=== PATIENT | female | born 1970 | race Caucasian/White ===

== ENCOUNTER → 2019-07-01 | Outpatient (CLI) | payer MEDICARE, MEDICAID ==
[~2019-07-01] MED LIST: ADV250 IH; ALBU6.7H IH; ATOR10TA84 PO; BENZ2TAB58 PO; DOCU250C16 PO; FAMO20 PO; FLUO-191 PO; HALO5TAB23 PO; SIMVASTATIN; SINGULAIR; TRAMADOL
[2019-07-01 16:10] LABS: BASOPHILS % (AUTO) 0.3 % (0.0-2.0); EOSINOPHILS % (AUTO) 2.3 % (1.0-6.0); HEMATOCRIT 42.3 % (36-46); HEMOGLOBIN 13.3 g/dL (12.0-16.0); LYMPHOCYTES # (AUTO) 1.6 K/uL (1.0-4.8); LYMPHOCYTES % (AUTO) 16.8 % (22.0-44.0); MEAN CORPUSCULAR HEMOGLOBIN 26.8 pg (26.0-34.0); MEAN CORPUSCULAR HGB CONC 31.3 G/dL (31.0-37.0); MEAN CORPUSCULAR VOLUME 86 fL (80-100); MONOCYTES # (AUTO) 0.4 K/uL (0.1-1.0); MONOCYTES % (AUTO) 4.4 % (2.0-9.0); NEUTROPHILS # (AUTO) 7.3 K/uL (1.8-7.7); NEUTROPHILS % (AUTO) 76.2 % (40.0-70.0); PLATELET COUNT (AUTO) 307 K/uL (150-450); RED BLOOD CELL COUNT(AUTO) 4.95 MIL/uL (4.00-5.20); RED CELL DISTRIBUTION WIDTH 15.2 % (11.5-14.5)
== END | disposition home or self-care (01) ==
LOC: LABMN 16:00
DX: F25.0 Schizoaffective disorder, bipolar type (principal)

== ENCOUNTER → 2019-07-30 | Outpatient (CLI) | payer MEDICARE, MEDICAID | END | disposition home or self-care (01) | LOC: LABMN 13:00 | DX: F25.0 Schizoaffective disorder, bipolar type (principal) ==

== ENCOUNTER → 2019-08-26 | Outpatient (CLI) | payer MEDICARE, MEDICAID ==
[2019-08-30 11:07] LABS: HEMATOCRIT 41.2 % (36-46); HEMOGLOBIN 13.2 g/dL (12.0-16.0); MEAN CORPUSCULAR HEMOGLOBIN 27.4 pg (26.0-34.0); MEAN CORPUSCULAR VOLUME 86 fL (80-100); NEUTROPHILS % (AUTO) 58.6 % (40.0-70.0); PLATELET COUNT (AUTO) 338 K/uL (150-450); RED CELL DISTRIBUTION WIDTH 15.7 % (11.5-14.5)
[2019-08-30 11:08] LABS: BASOPHILS % (AUTO) 0.6 % (0.0-2.0); EOSINOPHILS % (AUTO) 4.3 % (1.0-6.0); LYMPHOCYTES # (AUTO) 2.9 K/uL (1.0-4.8); LYMPHOCYTES % (AUTO) 28.3 % (22.0-44.0); MONOCYTES # (AUTO) 0.8 K/uL (0.1-1.0); MONOCYTES % (AUTO) 8.2 % (2.0-9.0); NEUTROPHILS # (AUTO) 5.9 K/uL (1.8-7.7)
== END | disposition home or self-care (01) ==
LOC: LABMN 13:00
DX: F25.0 Schizoaffective disorder, bipolar type (principal)

== ENCOUNTER → 2019-09-29 | Outpatient (CLI) | payer MEDICARE, MEDICAID ==
[2019-10-01 11:16] LABS: HEMATOCRIT 40.8 % (36-46); HEMOGLOBIN 13.2 g/dL (12.0-16.0); MEAN CORPUSCULAR HEMOGLOBIN 27.2 pg (26.0-34.0); MEAN CORPUSCULAR VOLUME 84 fL (80-100); RED BLOOD CELL COUNT(AUTO) 4.84 MIL/uL (4.00-5.20)
[2019-10-01 11:17] LABS: BASOPHILS % (AUTO) 0.9 % (0.0-2.0); EOSINOPHILS % (AUTO) 2.9 % (1.0-6.0); LYMPHOCYTES # (AUTO) 2.5 K/uL (1.0-4.8); LYMPHOCYTES % (AUTO) 29.3 % (22.0-44.0); MEAN CORPUSCULAR HGB CONC 32.3 G/dL (31.0-37.0); MONOCYTES # (AUTO) 0.7 K/uL (0.1-1.0); MONOCYTES % (AUTO) 8.8 % (2.0-9.0); NEUTROPHILS # (AUTO) 4.9 K/uL (1.8-7.7); NEUTROPHILS % (AUTO) 58.1 % (40.0-70.0); PLATELET COUNT (AUTO) 338 K/uL (150-450); RED CELL DISTRIBUTION WIDTH 15.7 % (11.5-14.5)
== END | disposition home or self-care (01) ==
LOC: LABMN 14:00
DX: F25.0 Schizoaffective disorder, bipolar type (principal)

== ENCOUNTER → 2019-11-04 | Outpatient (CLI) | payer MEDICARE, MEDICAID ==
[2019-11-05 12:13] LABS: HEMATOCRIT 39.1 % (36-46); HEMOGLOBIN 12.7 g/dL (12.0-16.0); RED BLOOD CELL COUNT(AUTO) 4.63 MIL/uL (4.00-5.20)
[2019-11-05 12:14] LABS: BASOPHILS % (AUTO) 0.6 % (0.0-2.0); EOSINOPHILS % (AUTO) 3.4 % (1.0-6.0); LYMPHOCYTES # (AUTO) 2.6 K/uL (1.0-4.8); LYMPHOCYTES % (AUTO) 29.7 % (22.0-44.0); MEAN CORPUSCULAR HEMOGLOBIN 27.4 pg (26.0-34.0); MEAN CORPUSCULAR HGB CONC 32.5 G/dL (31.0-37.0); MEAN CORPUSCULAR VOLUME 85 fL (80-100); MONOCYTES # (AUTO) 0.7 K/uL (0.1-1.0); MONOCYTES % (AUTO) 7.5 % (2.0-9.0); NEUTROPHILS # (AUTO) 5.2 K/uL (1.8-7.7); NEUTROPHILS % (AUTO) 58.8 % (40.0-70.0); PLATELET COUNT (AUTO) 309 K/uL (150-450); RED CELL DISTRIBUTION WIDTH 14.9 % (11.5-14.5)
== END | disposition home or self-care (01) ==
LOC: LABPV 09:15
DX: F25.0 Schizoaffective disorder, bipolar type (principal)

== ENCOUNTER → 2019-12-08 | Outpatient (CLI) | payer MEDICARE, MEDICAID ==
[~2019-12-08] MED LIST changes: +CLOZ100 PO; +LEVO75 PO; +PALI234D IM; -SIMVASTATIN; +SIMVASTATIN PO; -SINGULAIR; +SINGULAIR PO; +TRAZ-257 PO
[2019-12-09 11:21] LABS: BASOPHILS % (AUTO) 0.7 % (0.0-2.0); EOSINOPHILS % (AUTO) 2.2 % (1.0-6.0); HEMATOCRIT 43.5 % (36-46); HEMOGLOBIN 14.1 g/dL (12.0-16.0); LYMPHOCYTES # (AUTO) 2.1 K/uL (1.0-4.8); LYMPHOCYTES % (AUTO) 24.8 % (22.0-44.0); MEAN CORPUSCULAR HEMOGLOBIN 26.9 pg (26.0-34.0); MEAN CORPUSCULAR HGB CONC 32.4 G/dL (31.0-37.0); MEAN CORPUSCULAR VOLUME 83 fL (80-100); MONOCYTES # (AUTO) 0.6 K/uL (0.1-1.0); MONOCYTES % (AUTO) 7.5 % (2.0-9.0); NEUTROPHILS # (AUTO) 5.4 K/uL (1.8-7.7); NEUTROPHILS % (AUTO) 64.8 % (40.0-70.0); PLATELET COUNT (AUTO) 386 K/uL (150-450); RED BLOOD CELL COUNT(AUTO) 5.24 MIL/uL (4.00-5.20)
== END | disposition home or self-care (01) ==
LOC: LABMN 13:02
DX: F25.0 Schizoaffective disorder, bipolar type (principal)

== ENCOUNTER 2019-12-15 11:36 | Emergency (ER) | payer MEDICARE, MEDICAID ==
[~2019-12-15] VITALS: Ht 157.5 cm; Wt 113.6 kg
[~2019-12-15 11:36] MED LIST changes: -CLOZ100 PO; -LEVO75 PO; -PALI234D IM; -TRAZ-257 PO
[2019-12-15] MEDS ORDERED: CLOZ100 PO (12:25)
[2019-12-15] MEDS ORDERED: LEVO75 PO (12:25)
[2019-12-15] MEDS ORDERED: PALI234D IM (12:25)
[2019-12-15] MEDS ORDERED: TRAZ-257 PO (12:26)
[2019-12-15] MEDS ORDERED: ALBUTEROL SULFATE HFA 90 MCG/PUFF 8 GM INHALER IH ONE (13:00)
[2019-12-15] MEDS ORDERED: FLUTICASONE PROPIONATE 50 MCG/SPRAY 16 GM NASAL SPRAY NASAL ONE (13:00)
[2019-12-15] MEDS ORDERED: BENZONATATE 100 MG CAPSULE PO ONE (13:00)
[2019-12-15] MEDS ORDERED: MOMETASONE FUROATE 50 MCG/SPRAY 17 GM NASAL SPRAY NASAL ONE (13:15)
[2019-12-15 14:00] VITALS: BP 124/81
== END 2019-12-15 14:00 | disposition home or self-care (01) ==
LOC: EMS 11:38
DX: J45.909 Unspecified asthma, uncomplicated (principal); E78.00 Pure hypercholesterolemia, unspecified; E03.9 Hypothyroidism, unspecified; G47.30 Sleep apnea, unspecified; K21.9 Gastro-esophageal reflux disease without esophagitis; F20.9 Schizophrenia, unspecified; Z79.899 Other long term (current) drug therapy
CPT/HCPCS: 94640; J3535

== ENCOUNTER 2021-03-29 15:32 | Inpatient (IN) | payer MEDICARE, MEDICAID ==
[~2021-03-29] VITALS: Ht 157.5 cm; Wt 106.0 kg
[~2021-03-29 15:32] MED LIST changes: -ADV250 IH; -ATOR10TA84 PO; +CLOZ100T32 PO; -HALO5TAB23 PO; +LEVO75 PO; +PALI234D IM; -TRAMADOL; +TRAZ-257 PO
[2021-03-29] MEDS ORDERED: HALOPERIDOL 5 MG TABLET PO PRN (15:45)
[2021-03-29] MEDS ORDERED: LORazepam 2 MG TABLET PO PRN (15:45)
[2021-03-29] MEDS ORDERED: ZOLPIDEM TARTRATE 10 MG TABLET PO PRN (15:45)
[2021-03-29 17:30] VITALS: BP 135/96
[2021-03-29] MEDS: HALOPERIDOL 10 MG TABLET PO SCH (18:05)
[2021-03-29] MEDS: OLANZapine 10 MG TABLET PO SCH (20:23)
[2021-03-30 00:35] VITALS: BP 122/78
[2021-03-30] MEDS: LEVOTHYROXINE SODIUM 75 MCG TABLET PO SCH (06:51)
[2021-03-30 07:34] LABS: BASOPHILS % (AUTO) 0.3 % (0.0-2.0); EOSINOPHILS % (AUTO) 3.8 % (1.0-6.0); HEMOGLOBIN 13.8 g/dL (12.0-16.0); LYMPHOCYTES # (AUTO) 2.1 K/uL (1.0-4.8); LYMPHOCYTES % (AUTO) 31.9 % (22.0-44.0); MEAN CORPUSCULAR HEMOGLOBIN 25.7 pg (26.0-34.0); MEAN CORPUSCULAR HGB CONC 32.1 G/dL (31.0-37.0); MEAN CORPUSCULAR VOLUME 80 fL (80-100); MONOCYTES # (AUTO) 0.7 K/uL (0.1-1.0); MONOCYTES % (AUTO) 11.3 % (2.0-9.0); NEUTROPHILS # (AUTO) 3.5 K/uL (1.8-7.7); NEUTROPHILS % (AUTO) 52.7 % (40.0-70.0); PLATELET COUNT (AUTO) 284 K/uL (150-450); RED BLOOD CELL COUNT(AUTO) 5.38 MIL/uL (4.00-5.20); RED CELL DISTRIBUTION WIDTH 15.1 % (11.5-14.5)
[2021-03-30 07:40] LABS: HEMOGLOBIN A1C 5.8 % (3.8-5.6)
[2021-03-30] MEDS ORDERED: ACETAMINOPHEN 325 MG TABLET PO PRN (07:45)
[2021-03-30] MEDS ORDERED: GuaiFENesin/D-METHORPHAN [SUGAR-FREE] 200-20MG/10 ML SYRUP UDCUP PO PRN (07:45)
[2021-03-30] MEDS ORDERED: MAG HYDROX/AL HYDROX/SIMETH ES 30 ML SUSPENSION UDCUP PO PRN (07:45)
[2021-03-30] MEDS ORDERED: CloNIDine HCL 0.1 MG TABLET PO PRN (07:45)
[2021-03-30] MEDS ORDERED: ONDANSETRON HCL 4 MG TABLET PO PRN (07:45)
[2021-03-30] MEDS ORDERED: NICOTINE 14 MG/24 HOUR PATCH TD PRN (07:45)
[2021-03-30] MEDS ORDERED: LOPERAMIDE HCL 2 MG CAPSULE PO PRN (07:45)
[2021-03-30] MEDS ORDERED: MAGNESIUM HYDROXIDE SUSPENSION 30 ML UDCUP PO PRN (07:45)
[2021-03-30] MEDS ORDERED: IBUPROFEN 400 MG TABLET PO PRN (07:45)
[2021-03-30] MEDS ORDERED: PETROLATUM,WHITE 28 GM JELLY TP PRN (07:45)
[2021-03-30] MEDS ORDERED: ALBUTEROL SULFATE HFA 90 MCG/PUFF 8 GM INHALER IH PRN (07:45)
[2021-03-30] MEDS ORDERED: DOCUSATE SODIUM 100 MG CAPSULE PO PRN (07:45)
[2021-03-30 07:58] LABS: ALBUMIN 2.9 g/dL (3.4-5.0); BILIRUBIN,TOTAL 0.2 mg/dL (0.1-1.0); CALCIUM, TOTAL 8.9 mg/dL (8.8-10.5); FREE T4 (FREE THYROXINE) 1.21 ng/dL (0.76-1.46); THYROID STIMULATING HORMONE 0.95 uIU/mL (0.36-3.74); TOTAL PROTEIN, SERUM 6.3 g/dL (6.4-8.2)
[2021-03-30] MEDS: OLANZapine 10 MG TABLET PO SCH ×2 (08:51→21:05)
[2021-03-30] MEDS: DOCUSATE SODIUM 100 MG CAPSULE PO SCH (08:55)
[2021-03-30] MEDS: ALBUTEROL SULFATE HFA 90 MCG/PUFF 8 GM INHALER IH SCH ×2 (08:57→17:00)
[2021-03-30] MEDS: MONTELUKAST SODIUM 10 MG TABLET PO SCH (09:00)
[2021-03-30] MEDS: HALOPERIDOL 10 MG TABLET PO SCH ×2 (10:26→17:01)
[2021-03-30] MEDS: FAMOTIDINE 20 MG TABLET PO SCH (10:26)
[2021-03-30] MEDS ORDERED: MELATONIN 3 MG TABLET PO PRN (10:30)
[2021-03-30] MEDS ORDERED: QUEtiapine FUMARATE 100 MG TABLET PO PRN (10:45)
[2021-03-30 16:14] VITALS: BP 105/62
[2021-03-30] MEDS: BENZTROPINE MESYLATE 1 MG TABLET PO SCH (17:01)
[2021-03-30] MEDS: TraZODone HCL 100 MG TABLET PO SCH (21:05)
[2021-03-30] MEDS: MIRTAZAPINE 30 MG TABLET PO SCH (21:36)
[2021-03-31 06:03] VITALS: BP 111/75
[2021-03-31] MEDS: LEVOTHYROXINE SODIUM 75 MCG TABLET PO SCH (06:29)
[2021-03-31] MEDS ORDERED: LEVOTHYROXINE SODIUM 75 MCG TABLET PO SCH (06:30)
[2021-03-31] MEDS: FAMOTIDINE 20 MG TABLET PO SCH (09:00)
[2021-03-31] MEDS: DOCUSATE SODIUM 100 MG CAPSULE PO SCH (09:01)
[2021-03-31] MEDS: OLANZapine 10 MG TABLET PO SCH ×2 (09:01→20:35)
[2021-03-31] MEDS: MONTELUKAST SODIUM 10 MG TABLET PO SCH (09:02)
[2021-03-31] MEDS: HALOPERIDOL 10 MG TABLET PO SCH ×2 (09:02→16:40)
[2021-03-31] MEDS: ALBUTEROL SULFATE HFA 90 MCG/PUFF 8 GM INHALER IH SCH ×2 (09:03→16:40)
[2021-03-31 09:48] VITALS: BP 116/80
[2021-03-31] MEDS: BENZTROPINE MESYLATE 1 MG TABLET PO SCH ×2 (09:49→16:39)
[2021-03-31 16:05] VITALS: BP 116/56
[2021-03-31] MEDS: MIRTAZAPINE 30 MG TABLET PO SCH (20:35)
[2021-03-31] MEDS: TraZODone HCL 100 MG TABLET PO SCH (20:35)
[2021-04-01 05:23] VITALS: BP 119/82
[2021-04-01] MEDS: LEVOTHYROXINE SODIUM 75 MCG TABLET PO SCH (06:47)
[2021-04-01 07:22] LABS: APPEARANCE,URINE CLOUDY (CLEAR); BILIRUBIN,URINE NEGATIVE (NEGATIVE); GLUCOSE, URINE (UA) NEGATIVE (NEGATIVE); KETONES,URINE NEGATIVE (NEGATIVE); LEUKOCYTE ESTERASE ,URINE MODERATE (NEGATIVE); NITRATE,URINE NEGATIVE (NEGATIVE); OCCULT BLOOD,URINE NEGATIVE (NEGATIVE); PH,URINE 6.5 (5.0-8.0); PROTEIN,URINE NEGATIVE (NEGATIVE); UROBILINOGEN,URINE 0.2 mg/dL (<=1.0)
[2021-04-01 07:27] LABS: AMPHET/METH SCREEN,URINE NEGATIVE (NEGATIVE); BARBITURATE SCREEN, URINE NEGATIVE (NEGATIVE); BENZODIAZEPINES SCREEN,URINE NEGATIVE (NEGATIVE); CANNABINOID SCREEN,URINE NEGATIVE (NEGATIVE); COCAINE SCREEN,URINE NEGATIVE (NEGATIVE); METHADONE SCREEN, URINE NEGATIVE (NEGATIVE); OPIATE SCREEN,URINE NEGATIVE (NEGATIVE)
[2021-04-01 07:28] LABS: PHENCYCLIDINE SCREEN,URINE NEGATIVE (NEGATIVE)
[2021-04-01 07:39] LABS: RBC,URINE None Seen /HPF (0-2)
[2021-04-01 07:40] VITALS: BP 116/81
[2021-04-01 07:40] LABS: BACTERIA,URINE Few /HPF (None Seen); SQUAMOUS EPITHELIAL CELL,UR Rare /LPF (None Seen)
[2021-04-01 08:19] VITALS: BP 116/81
[2021-04-01] MEDS: BENZTROPINE MESYLATE 1 MG TABLET PO SCH ×2 (08:32→16:45)
[2021-04-01] MEDS: FAMOTIDINE 20 MG TABLET PO SCH (08:33)
[2021-04-01] MEDS: MONTELUKAST SODIUM 10 MG TABLET PO SCH (08:33)
[2021-04-01] MEDS: HALOPERIDOL 10 MG TABLET PO SCH ×2 (08:33→16:45)
[2021-04-01] MEDS: ALBUTEROL SULFATE HFA 90 MCG/PUFF 8 GM INHALER IH SCH ×2 (08:33→16:45)
[2021-04-01] MEDS: OLANZapine 10 MG TABLET PO SCH ×2 (08:33→20:31)
[2021-04-01] MEDS: DOCUSATE SODIUM 100 MG CAPSULE PO SCH (08:33)
[2021-04-01] MEDS ORDERED: DOCU-275 PO (16:36)
[2021-04-01] MEDS ORDERED: BENZ1TAB10 PO (16:36)
[2021-04-01] MEDS ORDERED: SIMV-259 PO (16:36)
[2021-04-01] MEDS ORDERED: ALBU8HFA IH (16:36)
[2021-04-01] MEDS ORDERED: FLUO10CA24 PO (16:36)
[2021-04-01] MEDS ORDERED: MONT-35 PO (16:36)
[2021-04-01] MEDS ORDERED: CLOZ25TA5 PO (16:36)
[2021-04-01] MEDS: HydrOXYzine PAMOATE 25 MG CAPSULE PO SCH ×2 (16:45→20:35)
[2021-04-01 17:00] VITALS: BP 112/71
[2021-04-01] MEDS: MELATONIN 3 MG TABLET PO SCH (20:31)
[2021-04-01] MEDS: TraZODone HCL 100 MG TABLET PO SCH (20:31)
[2021-04-01] MEDS: MIRTAZAPINE 30 MG TABLET PO SCH (20:31)
[2021-04-01] MEDS: SIMVASTATIN 10 MG TABLET PO SCH (20:31)
[2021-04-02 05:38] VITALS: BP 110/71
[2021-04-02] MEDS: LEVOTHYROXINE SODIUM 100 MCG TABLET PO SCH (06:22)
[2021-04-02 08:07] VITALS: BP 117/77
[2021-04-02] MEDS: HALOPERIDOL 10 MG TABLET PO SCH ×2 (08:47→16:36)
[2021-04-02] MEDS: MONTELUKAST SODIUM 10 MG TABLET PO SCH (08:47)
[2021-04-02] MEDS: SENNA 187 MG TABLET PO SCH (08:47)
[2021-04-02] MEDS: FAMOTIDINE 20 MG TABLET PO SCH (08:47)
[2021-04-02] MEDS: ALBUTEROL SULFATE HFA 90 MCG/PUFF 8 GM INHALER IH SCH ×2 (08:47→16:36)
[2021-04-02] MEDS: HydrOXYzine PAMOATE 25 MG CAPSULE PO SCH ×4 (08:48→20:31)
[2021-04-02] MEDS: BENZTROPINE MESYLATE 1 MG TABLET PO SCH ×2 (08:48→16:36)
[2021-04-02] MEDS: OLANZapine 10 MG TABLET PO SCH ×2 (08:48→20:31)
[2021-04-02] MEDS: DOCUSATE SODIUM 100 MG CAPSULE PO SCH (12:11)
[2021-04-02 18:21] VITALS: BP 101/67
[2021-04-02] MEDS: SIMVASTATIN 10 MG TABLET PO SCH (20:31)
[2021-04-02] MEDS: MIRTAZAPINE 30 MG TABLET PO SCH (20:31)
[2021-04-02] MEDS: MELATONIN 3 MG TABLET PO SCH (20:31)
[2021-04-02] MEDS: TraZODone HCL 100 MG TABLET PO SCH (20:32)
[2021-04-03 00:52] VITALS: BP 116/78
[2021-04-03] MEDS: LEVOTHYROXINE SODIUM 100 MCG TABLET PO SCH (06:48)
[2021-04-03 08:28] VITALS: BP 119/69
[2021-04-03] MEDS: ALBUTEROL SULFATE HFA 90 MCG/PUFF 8 GM INHALER IH SCH ×2 (09:00→16:17)
[2021-04-03] MEDS: HydrOXYzine PAMOATE 25 MG CAPSULE PO SCH ×4 (09:01→20:03)
[2021-04-03] MEDS: OLANZapine 10 MG TABLET PO SCH ×2 (09:01→20:03)
[2021-04-03] MEDS: HALOPERIDOL 10 MG TABLET PO SCH ×2 (09:02→16:17)
[2021-04-03] MEDS: BENZTROPINE MESYLATE 1 MG TABLET PO SCH ×2 (09:02→16:17)
[2021-04-03] MEDS: MONTELUKAST SODIUM 10 MG TABLET PO SCH (09:02)
[2021-04-03] MEDS: SENNA 187 MG TABLET PO SCH (09:02)
[2021-04-03] MEDS: FAMOTIDINE 20 MG TABLET PO SCH (09:02)
[2021-04-03] MEDS: DOCUSATE SODIUM 100 MG CAPSULE PO SCH (12:58)
[2021-04-03 16:04] VITALS: BP 118/72
[2021-04-03] MEDS: MIRTAZAPINE 30 MG TABLET PO SCH (20:03)
[2021-04-03] MEDS: SIMVASTATIN 10 MG TABLET PO SCH (20:03)
[2021-04-03] MEDS: TraZODone HCL 100 MG TABLET PO SCH (20:03)
[2021-04-03] MEDS: MELATONIN 3 MG TABLET PO SCH (20:28)
[2021-04-04 00:20] VITALS: BP 117/78
[2021-04-04] MEDS: LEVOTHYROXINE SODIUM 100 MCG TABLET PO SCH (06:55)
[2021-04-04] MEDS: SENNA 187 MG TABLET PO SCH (08:35)
[2021-04-04] MEDS: OLANZapine 10 MG TABLET PO SCH ×3 (08:35→20:30)
[2021-04-04] MEDS: HALOPERIDOL 10 MG TABLET PO SCH ×2 (08:35→16:44)
[2021-04-04] MEDS: BENZTROPINE MESYLATE 1 MG TABLET PO SCH ×2 (08:35→16:45)
[2021-04-04] MEDS: MONTELUKAST SODIUM 10 MG TABLET PO SCH (08:35)
[2021-04-04] MEDS: HydrOXYzine PAMOATE 25 MG CAPSULE PO SCH ×5 (08:35→20:32)
[2021-04-04] MEDS: FAMOTIDINE 20 MG TABLET PO SCH (08:35)
[2021-04-04] MEDS: ALBUTEROL SULFATE HFA 90 MCG/PUFF 8 GM INHALER IH SCH ×2 (08:36→16:43)
[2021-04-04 08:37] LABS: COVID AG,FIA SOURCE NASOPHARYNGEAL
[2021-04-04 08:46] VITALS: BP 118/82
[2021-04-04] MEDS: DOCUSATE SODIUM 100 MG CAPSULE PO SCH (13:34)
[2021-04-04 16:08] VITALS: BP 147/93
[2021-04-04] MEDS: TraZODone HCL 100 MG TABLET PO SCH ×2 (19:49→20:30)
[2021-04-04] MEDS: SIMVASTATIN 10 MG TABLET PO SCH ×2 (19:49→20:29)
[2021-04-04] MEDS: MELATONIN 3 MG TABLET PO SCH ×2 (19:49→20:31)
[2021-04-04] MEDS: MIRTAZAPINE 30 MG TABLET PO SCH ×2 (19:49→20:30)
[2021-04-05 00:19] VITALS: BP 109/78
[2021-04-05] MEDS: LEVOTHYROXINE SODIUM 100 MCG TABLET PO SCH (06:40)
[2021-04-05] MEDS: OLANZapine 10 MG TABLET PO SCH (08:18)
[2021-04-05] MEDS: HydrOXYzine PAMOATE 25 MG CAPSULE PO SCH (08:18)
[2021-04-05] MEDS: HALOPERIDOL 10 MG TABLET PO SCH (08:18)
[2021-04-05] MEDS: MONTELUKAST SODIUM 10 MG TABLET PO SCH (08:18)
[2021-04-05] MEDS: SENNA 187 MG TABLET PO SCH (08:18)
[2021-04-05] MEDS: BENZTROPINE MESYLATE 1 MG TABLET PO SCH (08:18)
[2021-04-05] MEDS: FAMOTIDINE 20 MG TABLET PO SCH (08:18)
[2021-04-05] MEDS: ALBUTEROL SULFATE HFA 90 MCG/PUFF 8 GM INHALER IH SCH (08:19)
[2021-04-05 08:24] VITALS: BP 117/62
[2021-04-05] MEDS ORDERED: HALO10 PO (08:41)
[2021-04-05] MEDS ORDERED: MIRT30 PO (08:42)
[2021-04-05] MEDS ORDERED: OLAN10TA74 PO ×2 (08:42)
[2021-04-05] MEDS ORDERED: HYDR50CA9 PO (08:42)
[2021-04-05] MEDS ORDERED: LEVO100 PO (08:44)
== END 2021-04-05 11:42 | disposition home or self-care (01) | DRG 885 ==
LOC: B2X 16:47
DX: F25.0 Schizoaffective disorder, bipolar type (principal); F79 Unspecified intellectual disabilities; R45.851 Suicidal ideations; Z68.41 Body mass index [BMI] 40.0-44.9, adult; J45.909 Unspecified asthma, uncomplicated; K59.00 Constipation, unspecified; E78.5 Hyperlipidemia, unspecified; E66.9 Obesity, unspecified; E03.9 Hypothyroidism, unspecified; Z20.822 Contact with and (suspected) exposure to COVID-19; Z79.899 Other long term (current) drug therapy
CPT/HCPCS: 80053; 80061; 80307; 81001; 83036; 84436; 84439; 84443; 85025; 87086; J3535

== ENCOUNTER 2021-05-23 11:35 | Inpatient (IN) | payer MEDICARE, MEDICAID ==
[~2021-05-23] VITALS: Ht 157.5 cm; Wt 106.1 kg
[~2021-05-23 11:35] MED LIST changes: -ALBU6.7H IH; +BENZ1TAB10 PO; -BENZ2TAB58 PO; -CLOZ100T32 PO; +DOCU-270 PO; -DOCU250C16 PO; -FLUO-191 PO; +HALO10 PO; +HYDR50CA9 PO; +LEVO100 PO; -LEVO75 PO; +MIRT30 PO; +MONT-35 PO; +OLAN10TA74 PO; +SIMV-259 PO; -SIMVASTATIN PO; -SINGULAIR PO
[2021-05-23] MEDS ORDERED: LORazepam 2 MG TABLET PO PRN (17:00)
[2021-05-23] MEDS ORDERED: HALOPERIDOL 5 MG TABLET PO PRN (17:00)
[2021-05-23 17:17] LABS: GLUCOMETER DEV NAME(LOC) POC.BV
[2021-05-23 17:18] VITALS: BP 123/65
[2021-05-23] MEDS: SIMVASTATIN 10 MG TABLET PO SCH (21:05)
[2021-05-23] MEDS: ZOLPIDEM TARTRATE 10 MG TABLET PO PRN (21:05)
[2021-05-24] MEDS: LEVOTHYROXINE SODIUM 75 MCG TABLET PO SCH (06:53)
[2021-05-24 07:51] LABS: BASOPHILS % (AUTO) 0.4 % (0.0-2.0); HEMATOCRIT 42.8 % (36-46); HEMOGLOBIN 14.2 g/dL (12.0-16.0); LYMPHOCYTES # (AUTO) 2.1 K/uL (1.0-4.8); LYMPHOCYTES % (AUTO) 30.6 % (22.0-44.0); MEAN CORPUSCULAR HEMOGLOBIN 25.9 pg (26.0-34.0); MEAN CORPUSCULAR HGB CONC 33.1 G/dL (31.0-37.0); MEAN CORPUSCULAR VOLUME 78 fL (80-100); MONOCYTES # (AUTO) 0.5 K/uL (0.1-1.0); MONOCYTES % (AUTO) 7.2 % (2.0-9.0); NEUTROPHILS # (AUTO) 4.1 K/uL (1.8-7.7); NEUTROPHILS % (AUTO) 58.8 % (40.0-70.0); PLATELET COUNT (AUTO) 274 K/uL (150-450); RED BLOOD CELL COUNT(AUTO) 5.46 MIL/uL (4.00-5.20); RED CELL DISTRIBUTION WIDTH 14.7 % (11.5-14.5)
[2021-05-24 07:59] LABS: HEMOGLOBIN A1C 5.8 % (3.8-5.6)
[2021-05-24 08:05] VITALS: BP 111/67
[2021-05-24 08:22] LABS: ALANINE AMINOTRANSFERASE 40 U/L (12-78); ALBUMIN 3.4 g/dL (3.4-5.0); ALKALINE PHOSPHATASE 93 U/L (46-116); ANION GAP 4 mmol/L (8-16); ASPARTATE AMINOTRANSFERASE 16 U/L (15-37); BILIRUBIN,TOTAL 0.2 mg/dL (0.1-1.0); CARBON DIOXIDE 27 mmol/L (22-29); CHLORIDE 104 mmol/L (98-107); CHOL/HDL RATIO 3.9 (3.9-5.7); CHOLESTEROL 163 mg/dL (131-200); CREATININE 0.78 mg/dL (0.60-1.30); GLOMERULAR FILTR. RATE CALC > 60 mL/min (>60); GLUCOSE,RANDOM 70 mg/dL (70-110); HDL CHOLESTEROL 42 mg/dL (40-60); LDL CHOL (CALC.) 87 mg/dL (0-130); POTASSIUM 4.3 mmol/L (3.5-5.1); SODIUM SERUM 135 mmol/L (136-145); THYROID STIMULATING HORMONE 1.84 uIU/mL (0.36-3.74); TOTAL PROTEIN, SERUM 6.4 g/dL (6.4-8.2); TRIGLYCERIDES 171 mg/dL (15-150); UREA NITROGEN, BLOOD 13 mg/dL (7-18)
[2021-05-24] MEDS ORDERED: MAG HYDROX/AL HYDROX/SIMETH ES 30 ML SUSPENSION UDCUP PO PRN (08:30)
[2021-05-24] MEDS ORDERED: CloNIDine HCL 0.1 MG TABLET PO PRN (08:30)
[2021-05-24] MEDS ORDERED: ONDANSETRON HCL 4 MG TABLET PO PRN (08:30)
[2021-05-24] MEDS ORDERED: PETROLATUM,WHITE 28 GM JELLY TP PRN (08:30)
[2021-05-24] MEDS ORDERED: GuaiFENesin/D-METHORPHAN [SUGAR-FREE] 200-20MG/10 ML SYRUP UDCUP PO PRN (08:30)
[2021-05-24] MEDS ORDERED: DOCUSATE SODIUM 100 MG CAPSULE PO PRN (08:30)
[2021-05-24] MEDS ORDERED: LOPERAMIDE HCL 2 MG CAPSULE PO PRN (08:30)
[2021-05-24] MEDS ORDERED: ACETAMINOPHEN 325 MG TABLET PO PRN (08:30)
[2021-05-24] MEDS ORDERED: NICOTINE 14 MG/24 HOUR PATCH TD PRN (08:30)
[2021-05-24] MEDS ORDERED: MAGNESIUM HYDROXIDE SUSPENSION 30 ML UDCUP PO PRN (08:30)
[2021-05-24] MEDS ORDERED: ALBUTEROL SULFATE HFA 90 MCG/PUFF 8 GM INHALER IH PRN (08:30)
[2021-05-24] MEDS: SENNA 187 MG TABLET PO SCH ×2 (09:00→13:00)
[2021-05-24] MEDS ORDERED: NYSTATIN 15 GM POWDER BOTTLE TP PRN (09:00)
[2021-05-24] MEDS ORDERED: QUEtiapine FUMARATE 100 MG TABLET PO PRN (10:15)
[2021-05-24] MEDS: BENZTROPINE MESYLATE 1 MG TABLET PO SCH ×2 (13:31→17:19)
[2021-05-24] MEDS: HALOPERIDOL 10 MG TABLET PO SCH ×2 (13:31→17:19)
[2021-05-24] MEDS: OLANZapine 10 MG TABLET PO SCH ×2 (13:32→20:02)
[2021-05-24] MEDS: DOCUSATE SODIUM 100 MG CAPSULE PO SCH (13:32)
[2021-05-24] MEDS: HydrOXYzine PAMOATE 50 MG CAPSULE PO SCH ×3 (13:32→20:02)
[2021-05-24] MEDS: ALBUTEROL SULFATE HFA 90 MCG/PUFF 8 GM INHALER IH SCH ×2 (13:40→18:05)
[2021-05-24 16:18] VITALS: BP 140/80
[2021-05-24] MEDS: TraZODone HCL 100 MG TABLET PO SCH (20:03)
[2021-05-24] MEDS: MIRTAZAPINE 30 MG TABLET PO SCH (21:01)
[2021-05-24] MEDS: SIMVASTATIN 10 MG TABLET PO SCH (21:17)
[2021-05-25 05:37] VITALS: BP 126/68
[2021-05-25] MEDS: LEVOTHYROXINE SODIUM 75 MCG TABLET PO SCH (06:47)
[2021-05-25 08:09] VITALS: BP 114/67
[2021-05-25] MEDS: HydrOXYzine PAMOATE 50 MG CAPSULE PO SCH ×4 (09:34→21:08)
[2021-05-25] MEDS: ALBUTEROL SULFATE HFA 90 MCG/PUFF 8 GM INHALER IH SCH ×2 (09:34→17:16)
[2021-05-25] MEDS: SENNA 187 MG TABLET PO SCH (09:34)
[2021-05-25] MEDS: DOCUSATE SODIUM 100 MG CAPSULE PO SCH (09:34)
[2021-05-25] MEDS: BENZTROPINE MESYLATE 1 MG TABLET PO SCH ×2 (09:34→17:10)
[2021-05-25] MEDS: OLANZapine 10 MG TABLET PO SCH ×2 (09:34→21:09)
[2021-05-25] MEDS: HALOPERIDOL 10 MG TABLET PO SCH ×2 (09:34→17:10)
[2021-05-25 16:14] VITALS: BP 131/93
[2021-05-25] MEDS: TraZODone HCL 100 MG TABLET PO SCH (21:09)
[2021-05-25] MEDS: MIRTAZAPINE 30 MG TABLET PO SCH (21:11)
[2021-05-25] MEDS: SIMVASTATIN 10 MG TABLET PO SCH (21:15)
[2021-05-26] MEDS: LEVOTHYROXINE SODIUM 75 MCG TABLET PO SCH (06:39)
[2021-05-26 08:18] VITALS: BP 111/73
[2021-05-26] MEDS: OLANZapine 10 MG TABLET PO SCH ×2 (08:24→20:43)
[2021-05-26] MEDS: ALBUTEROL SULFATE HFA 90 MCG/PUFF 8 GM INHALER IH SCH ×2 (08:24→16:30)
[2021-05-26] MEDS: HALOPERIDOL 10 MG TABLET PO SCH ×2 (08:24→16:30)
[2021-05-26] MEDS: BENZTROPINE MESYLATE 1 MG TABLET PO SCH ×2 (08:24→16:30)
[2021-05-26] MEDS: SENNA 187 MG TABLET PO SCH (08:25)
[2021-05-26] MEDS: HydrOXYzine PAMOATE 50 MG CAPSULE PO SCH ×4 (08:25→20:53)
[2021-05-26] MEDS: DOCUSATE SODIUM 100 MG CAPSULE PO SCH (08:26)
[2021-05-26 16:23] VITALS: BP 125/87
[2021-05-26] MEDS: TraZODone HCL 100 MG TABLET PO SCH (20:43)
[2021-05-26] MEDS: SIMVASTATIN 10 MG TABLET PO SCH (20:43)
[2021-05-26] MEDS: MIRTAZAPINE 30 MG TABLET PO SCH (20:43)
[2021-05-27 04:10] VITALS: BP 126/78
[2021-05-27] MEDS: LEVOTHYROXINE SODIUM 75 MCG TABLET PO SCH (06:09)
[2021-05-27 08:18] VITALS: BP 106/60
[2021-05-27] MEDS: HydrOXYzine PAMOATE 50 MG CAPSULE PO SCH ×4 (08:35→20:33)
[2021-05-27] MEDS: DOCUSATE SODIUM 100 MG CAPSULE PO SCH (08:35)
[2021-05-27] MEDS: SENNA 187 MG TABLET PO SCH (08:35)
[2021-05-27] MEDS: BENZTROPINE MESYLATE 1 MG TABLET PO SCH ×2 (08:36→16:52)
[2021-05-27] MEDS: HALOPERIDOL 10 MG TABLET PO SCH ×2 (08:36→16:52)
[2021-05-27] MEDS: OLANZapine 10 MG TABLET PO SCH ×2 (08:36→20:33)
[2021-05-27] MEDS: ALBUTEROL SULFATE HFA 90 MCG/PUFF 8 GM INHALER IH SCH ×2 (09:00→16:52)
[2021-05-27 16:06] VITALS: BP 113/72
[2021-05-27] MEDS: MIRTAZAPINE 30 MG TABLET PO SCH (20:33)
[2021-05-27] MEDS: TraZODone HCL 100 MG TABLET PO SCH (20:33)
[2021-05-27] MEDS: SIMVASTATIN 10 MG TABLET PO SCH (20:33)
[2021-05-28 06:16] VITALS: BP 107/66
[2021-05-28] MEDS: LEVOTHYROXINE SODIUM 75 MCG TABLET PO SCH (06:17)
[2021-05-28 08:05] LABS: COVID AG,FIA SOURCE NASOPHARYNGEAL
[2021-05-28] MEDS: BENZTROPINE MESYLATE 1 MG TABLET PO SCH ×2 (08:21→16:34)
[2021-05-28] MEDS: ALBUTEROL SULFATE HFA 90 MCG/PUFF 8 GM INHALER IH SCH ×2 (08:21→16:35)
[2021-05-28] MEDS: OLANZapine 10 MG TABLET PO SCH ×2 (08:21→20:39)
[2021-05-28] MEDS: HydrOXYzine PAMOATE 50 MG CAPSULE PO SCH ×4 (08:21→20:39)
[2021-05-28] MEDS: DOCUSATE SODIUM 100 MG CAPSULE PO SCH (08:22)
[2021-05-28] MEDS: SENNA 187 MG TABLET PO SCH (08:22)
[2021-05-28] MEDS: HALOPERIDOL 10 MG TABLET PO SCH ×2 (08:23→16:34)
[2021-05-28 16:08] VITALS: BP 122/82
[2021-05-28] MEDS: MEGESTROL ACETATE 400 MG/10 ML SUSPENSION UDCUP PO SCH (16:34)
[2021-05-28] MEDS: SIMVASTATIN 10 MG TABLET PO SCH (20:38)
[2021-05-28] MEDS: TraZODone HCL 100 MG TABLET PO SCH (20:38)
[2021-05-28] MEDS: MIRTAZAPINE 30 MG TABLET PO SCH (20:39)
[2021-05-29] MEDS: LEVOTHYROXINE SODIUM 75 MCG TABLET PO SCH (06:39)
[2021-05-29 06:55] VITALS: BP 114/72
[2021-05-29 08:07] VITALS: BP 116/80
[2021-05-29] MEDS: BENZTROPINE MESYLATE 1 MG TABLET PO SCH ×2 (09:19→16:32)
[2021-05-29] MEDS: DOCUSATE SODIUM 100 MG CAPSULE PO SCH (09:19)
[2021-05-29] MEDS: MEGESTROL ACETATE 400 MG/10 ML SUSPENSION UDCUP PO SCH ×2 (09:20→16:31)
[2021-05-29] MEDS: HydrOXYzine PAMOATE 50 MG CAPSULE PO SCH ×4 (09:20→20:35)
[2021-05-29] MEDS: SENNA 187 MG TABLET PO SCH (09:20)
[2021-05-29] MEDS: OLANZapine 10 MG TABLET PO SCH ×2 (09:20→20:35)
[2021-05-29] MEDS: HALOPERIDOL 10 MG TABLET PO SCH ×2 (09:21→16:32)
[2021-05-29] MEDS: ALBUTEROL SULFATE HFA 90 MCG/PUFF 8 GM INHALER IH SCH ×2 (09:23→16:32)
[2021-05-29 16:13] VITALS: BP 118/78
[2021-05-29] MEDS: TraZODone HCL 100 MG TABLET PO SCH (20:35)
[2021-05-29] MEDS: SIMVASTATIN 10 MG TABLET PO SCH (20:35)
[2021-05-29] MEDS: MIRTAZAPINE 30 MG TABLET PO SCH (20:35)
[2021-05-30] MEDS: IBUPROFEN 400 MG TABLET PO PRN (00:11)
[2021-05-30 01:14] VITALS: BP 116/72
[2021-05-30] MEDS: LEVOTHYROXINE SODIUM 75 MCG TABLET PO SCH (06:52)
[2021-05-30] MEDS: SENNA 187 MG TABLET PO SCH (08:25)
[2021-05-30] MEDS: HALOPERIDOL 10 MG TABLET PO SCH ×2 (08:25→16:30)
[2021-05-30] MEDS: ALBUTEROL SULFATE HFA 90 MCG/PUFF 8 GM INHALER IH SCH ×2 (08:25→16:30)
[2021-05-30] MEDS: MEGESTROL ACETATE 400 MG/10 ML SUSPENSION UDCUP PO SCH ×2 (08:25→16:30)
[2021-05-30] MEDS: BENZTROPINE MESYLATE 1 MG TABLET PO SCH ×2 (08:25→16:30)
[2021-05-30] MEDS: HydrOXYzine PAMOATE 50 MG CAPSULE PO SCH ×4 (08:25→20:27)
[2021-05-30] MEDS: OLANZapine 10 MG TABLET PO SCH ×2 (08:25→20:28)
[2021-05-30] MEDS: DOCUSATE SODIUM 100 MG CAPSULE PO SCH (08:25)
[2021-05-30 08:33] VITALS: BP 117/80
[2021-05-30 16:08] VITALS: BP 119/85
[2021-05-30] MEDS: TraZODone HCL 100 MG TABLET PO SCH (20:28)
[2021-05-30] MEDS: SIMVASTATIN 10 MG TABLET PO SCH (20:28)
[2021-05-30] MEDS: MIRTAZAPINE 30 MG TABLET PO SCH (20:28)
[2021-05-31 06:19] VITALS: BP 114/64
[2021-05-31] MEDS: LEVOTHYROXINE SODIUM 75 MCG TABLET PO SCH (06:40)
[2021-05-31 08:32] VITALS: BP 103/62
[2021-05-31] MEDS: DOCUSATE SODIUM 100 MG CAPSULE PO SCH (09:30)
[2021-05-31] MEDS: OLANZapine 10 MG TABLET PO SCH ×2 (09:30→20:33)
[2021-05-31] MEDS: SENNA 187 MG TABLET PO SCH (09:30)
[2021-05-31] MEDS: HydrOXYzine PAMOATE 50 MG CAPSULE PO SCH ×4 (09:30→20:33)
[2021-05-31] MEDS: HALOPERIDOL 10 MG TABLET PO SCH ×2 (09:30→17:07)
[2021-05-31] MEDS: ALBUTEROL SULFATE HFA 90 MCG/PUFF 8 GM INHALER IH SCH ×2 (09:30→17:07)
[2021-05-31] MEDS: MEGESTROL ACETATE 400 MG/10 ML SUSPENSION UDCUP PO SCH ×2 (09:31→17:05)
[2021-05-31] MEDS: BENZTROPINE MESYLATE 1 MG TABLET PO SCH ×2 (09:32→17:07)
[2021-05-31 16:13] VITALS: BP 103/61
[2021-05-31] MEDS: SIMVASTATIN 10 MG TABLET PO SCH (20:32)
[2021-05-31] MEDS: TraZODone HCL 100 MG TABLET PO SCH (20:33)
[2021-05-31] MEDS: MIRTAZAPINE 30 MG TABLET PO SCH (20:33)
[2021-05-31 20:58] VITALS: BP 117/62
[2021-05-31] MEDS: IBUPROFEN 400 MG TABLET PO PRN (20:58)
[2021-05-31] MEDS: ZOLPIDEM TARTRATE 10 MG TABLET PO PRN (20:58)
[2021-06-01 04:54] VITALS: BP 103/61
[2021-06-01] MEDS: LEVOTHYROXINE SODIUM 75 MCG TABLET PO SCH (06:37)
[2021-06-01 08:10] VITALS: BP 144/90
[2021-06-01] MEDS: BENZTROPINE MESYLATE 1 MG TABLET PO SCH ×2 (08:10→16:38)
[2021-06-01] MEDS: DOCUSATE SODIUM 100 MG CAPSULE PO SCH (08:10)
[2021-06-01] MEDS: HydrOXYzine PAMOATE 50 MG CAPSULE PO SCH ×4 (08:10→20:28)
[2021-06-01] MEDS: OLANZapine 10 MG TABLET PO SCH ×2 (08:10→20:28)
[2021-06-01] MEDS: HALOPERIDOL 10 MG TABLET PO SCH ×2 (08:10→16:38)
[2021-06-01] MEDS: SENNA 187 MG TABLET PO SCH (08:11)
[2021-06-01] MEDS: MEGESTROL ACETATE 400 MG/10 ML SUSPENSION UDCUP PO SCH ×2 (08:11→16:38)
[2021-06-01] MEDS: ALBUTEROL SULFATE HFA 90 MCG/PUFF 8 GM INHALER IH SCH ×2 (08:11→16:38)
[2021-06-01 16:02] VITALS: BP 127/77
[2021-06-01] MEDS: TraZODone HCL 100 MG TABLET PO SCH (20:28)
[2021-06-01] MEDS: MIRTAZAPINE 30 MG TABLET PO SCH (20:28)
[2021-06-01] MEDS: SIMVASTATIN 10 MG TABLET PO SCH (20:28)
[2021-06-02 00:13] VITALS: BP 136/82
[2021-06-02] MEDS: LEVOTHYROXINE SODIUM 75 MCG TABLET PO SCH (06:48)
[2021-06-02 08:03] VITALS: BP 128/87
[2021-06-02] MEDS: OLANZapine 10 MG TABLET PO SCH ×2 (08:50→20:12)
[2021-06-02] MEDS: BENZTROPINE MESYLATE 1 MG TABLET PO SCH ×2 (08:50→16:34)
[2021-06-02] MEDS: DOCUSATE SODIUM 100 MG CAPSULE PO SCH (08:50)
[2021-06-02] MEDS: HydrOXYzine PAMOATE 50 MG CAPSULE PO SCH ×4 (08:50→20:12)
[2021-06-02] MEDS: MEGESTROL ACETATE 400 MG/10 ML SUSPENSION UDCUP PO SCH ×2 (08:51→16:35)
[2021-06-02] MEDS: HALOPERIDOL 10 MG TABLET PO SCH ×2 (08:51→16:34)
[2021-06-02] MEDS: ALBUTEROL SULFATE HFA 90 MCG/PUFF 8 GM INHALER IH SCH ×2 (08:51→16:35)
[2021-06-02] MEDS: SENNA 187 MG TABLET PO SCH (08:56)
[2021-06-02 16:14] VITALS: BP 122/89
[2021-06-02] MEDS: TraZODone HCL 100 MG TABLET PO SCH (20:11)
[2021-06-02] MEDS: MIRTAZAPINE 30 MG TABLET PO SCH (20:12)
[2021-06-02] MEDS: SIMVASTATIN 10 MG TABLET PO SCH (20:57)
[2021-06-02] MEDS: IBUPROFEN 400 MG TABLET PO PRN (22:25)
[2021-06-03 00:14] VITALS: BP 140/79
[2021-06-03] MEDS: LEVOTHYROXINE SODIUM 75 MCG TABLET PO SCH (06:52)
[2021-06-03 08:24] VITALS: BP 108/61
[2021-06-03] MEDS: MEGESTROL ACETATE 400 MG/10 ML SUSPENSION UDCUP PO SCH ×2 (08:30→16:59)
[2021-06-03] MEDS: ALBUTEROL SULFATE HFA 90 MCG/PUFF 8 GM INHALER IH SCH ×2 (08:30→16:58)
[2021-06-03] MEDS: HALOPERIDOL 10 MG TABLET PO SCH ×2 (08:31→16:58)
[2021-06-03] MEDS: SENNA 187 MG TABLET PO SCH (08:31)
[2021-06-03] MEDS: OLANZapine 10 MG TABLET PO SCH ×2 (08:31→21:03)
[2021-06-03] MEDS: BENZTROPINE MESYLATE 1 MG TABLET PO SCH ×2 (08:31→16:58)
[2021-06-03] MEDS: DOCUSATE SODIUM 100 MG CAPSULE PO SCH (08:31)
[2021-06-03] MEDS: HydrOXYzine PAMOATE 50 MG CAPSULE PO SCH ×4 (08:31→20:59)
[2021-06-03 16:07] VITALS: BP 109/71
[2021-06-03] MEDS: TraZODone HCL 100 MG TABLET PO SCH (20:59)
[2021-06-03] MEDS: SIMVASTATIN 10 MG TABLET PO SCH (20:59)
[2021-06-03] MEDS: MIRTAZAPINE 30 MG TABLET PO SCH (20:59)
[2021-06-04 00:11] VITALS: BP 138/82
[2021-06-04] MEDS: IBUPROFEN 400 MG TABLET PO PRN (00:41)
[2021-06-04] MEDS: LEVOTHYROXINE SODIUM 75 MCG TABLET PO SCH (06:38)
[2021-06-04 07:51] LABS: COVID AG,FIA SOURCE NASOPHARYNGEAL
[2021-06-04 08:12] VITALS: BP 130/80
[2021-06-04] MEDS: MEGESTROL ACETATE 400 MG/10 ML SUSPENSION UDCUP PO SCH ×2 (08:54→17:00)
[2021-06-04] MEDS: HydrOXYzine PAMOATE 50 MG CAPSULE PO SCH ×4 (08:54→21:25)
[2021-06-04] MEDS: OLANZapine 10 MG TABLET PO SCH ×2 (08:54→21:25)
[2021-06-04] MEDS: SENNA 187 MG TABLET PO SCH (08:54)
[2021-06-04] MEDS: DOCUSATE SODIUM 100 MG CAPSULE PO SCH (08:54)
[2021-06-04] MEDS: HALOPERIDOL 10 MG TABLET PO SCH ×2 (08:54→17:00)
[2021-06-04] MEDS: BENZTROPINE MESYLATE 1 MG TABLET PO SCH ×2 (08:55→17:00)
[2021-06-04] MEDS: ALBUTEROL SULFATE HFA 90 MCG/PUFF 8 GM INHALER IH SCH ×2 (08:55→17:02)
[2021-06-04 16:05] VITALS: BP 110/81
[2021-06-04] MEDS: SIMVASTATIN 10 MG TABLET PO SCH (21:25)
[2021-06-04] MEDS: MIRTAZAPINE 30 MG TABLET PO SCH (21:25)
[2021-06-04] MEDS: TraZODone HCL 100 MG TABLET PO SCH (21:26)
[2021-06-05 00:12] VITALS: BP 125/87
[2021-06-05] MEDS: LEVOTHYROXINE SODIUM 75 MCG TABLET PO SCH (06:52)
[2021-06-05 08:28] VITALS: BP 115/84
[2021-06-05] MEDS: BENZTROPINE MESYLATE 1 MG TABLET PO SCH (09:20)
[2021-06-05] MEDS: SENNA 187 MG TABLET PO SCH (09:20)
[2021-06-05] MEDS: ALBUTEROL SULFATE HFA 90 MCG/PUFF 8 GM INHALER IH SCH (09:20)
[2021-06-05] MEDS: HydrOXYzine PAMOATE 50 MG CAPSULE PO SCH (09:20)
[2021-06-05] MEDS: DOCUSATE SODIUM 100 MG CAPSULE PO SCH (09:20)
[2021-06-05] MEDS: OLANZapine 10 MG TABLET PO SCH (09:20)
[2021-06-05] MEDS: MEGESTROL ACETATE 400 MG/10 ML SUSPENSION UDCUP PO SCH (09:21)
[2021-06-05] MEDS: HALOPERIDOL 10 MG TABLET PO SCH (09:21)
[2021-06-05] MEDS ORDERED: DOCU-270 PO (09:35)
[2021-06-05] MEDS ORDERED: LEVO75 PO (09:38)
[2021-06-05] MEDS ORDERED: ALBU8HFA IH (09:40)
[2021-06-05] MEDS ORDERED: SENN8.6T20 PO (09:45)
== END 2021-06-05 10:00 | disposition home or self-care (01) | DRG 885 ==
LOC: B2X 13:30
DX: F25.0 Schizoaffective disorder, bipolar type (principal); F79 Unspecified intellectual disabilities; R45.851 Suicidal ideations; E87.1 Hypo-osmolality and hyponatremia; Z68.41 Body mass index [BMI] 40.0-44.9, adult; E03.9 Hypothyroidism, unspecified; Z20.822 Contact with and (suspected) exposure to COVID-19; E66.9 Obesity, unspecified; Z59.0 Homelessness; J45.909 Unspecified asthma, uncomplicated; E78.5 Hyperlipidemia, unspecified; Z79.899 Other long term (current) drug therapy
CPT/HCPCS: 80053; 80061; 83036; 84439; 84443; 85025; J3535

== ENCOUNTER 2025-09-30 13:56 | Emergency (ER) | payer MEDICARE, OTHER ==
[~2025-09-30] VITALS: Ht 162.6 cm; Wt 100.0 kg
[~2025-09-30 13:56] MED LIST changes: +ALBU18HF12 IH; +BENZ-247 PO; -BENZ1TAB10 PO; -DOCU-270 PO; +DOCU-385 PO; -FAMO20 PO; -HALO10 PO; +HALO10TA21 PO; +HYDR50CA7 PO; -HYDR50CA9 PO; -LEVO100 PO; +LEVO75 PO; +MIRT-149 PO; -MIRT30 PO; -MONT-35 PO; -PALI234D IM; +SENN8.6T20 PO
[2025-09-30 14:08] VITALS: TEMP 98.2
[2025-09-30 15:13] LABS: PLATELET COUNT (AUTO) 250 K/uL (150-450); RED BLOOD CELL COUNT(AUTO) 5.49 MIL/uL (4.00-5.20); RED CELL DISTRIBUTION WIDTH 14.2 % (11.5-14.5); WHITE BLOOD COUNT (AUTO) 7.3 K/uL (4.5-11.0)
[2025-09-30 15:21] LABS: CALCIUM, TOTAL 9.2 mg/dL (8.8-10.5); CREATININE 0.94 mg/dL (0.60-1.30); GLOMERULAR FILTR. RATE CALC > 60 mL/min (>60); GLUCOSE,RANDOM 126 mg/dL (70-110); SODIUM SERUM 134 mmol/L (136-145); UREA NITROGEN, BLOOD 13 mg/dL (7-18)
[2025-09-30 15:45] LABS: COVID AG,FIA SOURCE NASAL SWAB
[2025-09-30 15:49] LABS: PH,URINE DRUG SCREEN 6.0 (5.0-8.0)
[2025-09-30 16:03] LABS: ALCOHOL, URINE DRUG SCREEN NEGATIVE (NEGATIVE); AMPHET/METH SCREEN,URINE NEGATIVE (NEGATIVE); BARBITURATE SCREEN, URINE NEGATIVE (NEGATIVE); CANNABINOID SCREEN,URINE NEGATIVE (NEGATIVE); COCAINE SCREEN,URINE NEGATIVE (NEGATIVE); METHADONE SCREEN, URINE NEGATIVE (NEGATIVE)
[2025-09-30 16:10] LABS: SARS-COV2 (COVID) ANTIGEN,FIA Negative (Negative)
[2025-09-30 17:15] VITALS: BP 134/78; PULSE 95; RESP 17; O2SAT 98
== END 2025-09-30 17:55 | disposition admitted as inpatient to this hospital (09) ==
LOC: EMS 13:58 → CANBEDREQ 10-01 15:11
DX: F25.9 Schizoaffective disorder, unspecified (principal); R45.851 Suicidal ideations; E03.9 Hypothyroidism, unspecified; E78.00 Pure hypercholesterolemia, unspecified; J45.909 Unspecified asthma, uncomplicated; Z79.899 Other long term (current) drug therapy; Z20.822 Contact with and (suspected) exposure to COVID-19
CPT/HCPCS: 99283; 87426; 80048; 85025; 36415; 80307; G0480